=== PATIENT | female | born 1995 | race African-American/Black ===

== ENCOUNTER 2018-10-22 10:52 | Outpatient (CLI) | payer MEDICAID ==
[~2018-10-22] VITALS: Ht 162.6 cm; Wt 59.4 kg
[2018-10-22] MEDS ORDERED: PREN-93 PO (11:22)
[2018-10-22 11:24] VITALS: BP 113/68; PULSE 87; RESP 18; Ht 162.6 cm; Wt 59.4 kg
[2018-10-22] MEDS ORDERED: LACTATED RINGER'S 1,000 ML IV SCH (14:30)
[2018-10-22] MEDS ORDERED: CEFAZOLIN 2 GM/50 ML (PMX) 50 ML IVPB ONE (14:30)
--- NOTE | 2018-10-22 18:09 | TRIAGE ---
OB Triage Datetime Report Generated by CPN: 10/22/2018 18:09 Datetime: 10/22/2018 17:35 Labor Evaluation Frequency: 0 Monitor Mode: External Pattern: Normal: <= 5 Contractions in 10 Minutes Heart Rate FHR Baseline Rate: 140 Monitor Mode: External US Variability: Moderate 6-25 bpm Accelerations: 15X15 Decelerations: None Category: Category I Datetime: 10/22/2018 16:35 Labor Evaluation Frequency: 0 Pattern: Normal: <= 5 Contractions in 10 Minutes [place]: Relaxed Heart Rate FHR Baseline Rate: 140 Monitor Mode: External US Variability: Moderate 6-25 bpm Accelerations: 15X15 Decelerations: Variable Category: Category II Datetime: 10/22/2018 15:25 Comments: U/S AT BEDSIDE Datetime: 10/22/2018 15:24 Labor Evaluation Frequency: X1 Monitor Mode: External Duration (sec)2399: 60 Quality: Mild Pattern: Normal: <= 5 Contractions in 10 Minutes [place]: Relaxed Heart Rate FHR Baseline Rate: 140 Monitor Mode: External US Variability: Moderate 6-25 bpm Accelerations: 10X10 Decelerations: None Category: Category I Datetime: 10/22/2018 15:00 Labor Evaluation Frequency: 0 Monitor Mode: External Pattern: Normal: <= 5 Contractions in 10 Minutes [place]: Relaxed Heart Rate FHR Baseline Rate: 140 Monitor Mode: External US Variability: Moderate 6-25 bpm Accelerations: 15X15 Decelerations: None Category: Category I Datetime: 10/22/2018 14:00 Labor Evaluation Frequency: x1 Monitor Mode: External Duration (sec)2399: 70 Quality: Mild Pattern: Normal: <= 5 Contractions in 10 Minutes [place]: Relaxed Heart Rate FHR Baseline Rate: 135 Monitor Mode: External US Variability: Moderate 6-25 bpm Accelerations: 15X15 Decelerations: Late Category: Category II Datetime: 10/22/2018 13:00 Labor Evaluation Frequency: 0 Monitor Mode: External Pattern: Normal: <= 5 Contractions in 10 Minutes [place]: Relaxed Heart Rate FHR Baseline Rate: 140 Monitor Mode: External US Variability: Moderate 6-25 bpm Accelerations: 15X15 Decelerations: None Category: Category I Datetime: 10/22/2018 12:40 Comments: U/S TECH AT BEDSIDE Datetime: 10/22/2018 12:00 Labor Evaluation Frequency: 0 Monitor Mode: External Pattern: Normal: <= 5 Contractions in 10 Minutes [place]: Relaxed Heart Rate FHR Baseline Rate: 140 Monitor Mode: External US Variability: Moderate 6-25 bpm Accelerations: 15X15 Decelerations: Variable Category: Category II Comments: fr baseline 140 down to 110 for 50 seconds, dr mistry notified Datetime: 10/22/2018 11:26 EGA: 27.3 Datetime: 10/22/2018 11:25 Time of Arrival: 10/22/2018 10:46 Arrived By: Wheelchair Arrived From: Home Chief Complaint: VAGINAL PRESSURE, D/C Movement: Present Contractions: Denies/Absent Rupture of Membranes: Denies Vaginal Bleeding: None Vaginal Discharge: Denies Recent Sexual Intercouse: Denies Abdominal Trauma: Not Applicable Patient Complaints: Other Time Provider Notified: 10/22/2018 11:40 Provider Notified: ARADALAN Initial Plan: U/A, NST Datetime: 10/22/2018 11:10 Stage of : OB Triage Maternal Assessment Level of Consciousness: Fully Conscious DTR's/Clonus: DTRs 2+; No Clonus Headache: Denies Blurred Vision: No Respiratory Effort: Unlabored; Regular Rhythm; Equal Expansion Breath Sounds, Left: Clear and Equal Breath Sounds, Right: Clear and Equal Nausea/Vomiting: Denies RUQ Epigastric Pain: Denies Lower Extremities Edema: None Degree: None Upper Extremities Edema: None Degree: None Facial Edema: None Temperature Route: Axillary Fall Risk Assessment History of Falling: (0) No Secondary Diagnosis: (0) No Ambulatory Aid: (0) Bedrest/Nurse Assist IV Therapy: (0) No Gait: (0) Normal/Bedrest/Immobile Mental Status: (0) Oriented to Own Ability Fall Score: 0 Fall Risk Score Definition: No Risk: No action required Datetime: 10/22/2018 11:07 Pain Assessment Pain Scale: 8 Pain Presence: Constant Pain Type: Pressure Pain Location: Perineum Pain Goal: 0 Pain Relief Measures: Comfort Measures Pain Assessment Comments: PELVIC PRESSURE/PAIN
--- NOTE | 2018-10-22 18:23 | PN ---
Triage Information Date/Time October 22, 2018 Reason for visit: Weeks of Gestation 27 weeks and 3 days /Para 3 para 2 Diabetes: none Hypertention: none Additional information 23-year-old G3, P2 with IUP at 27 weeks and 3 days presents with complaint of packed vaginal pain and discharge. care with Dr. Lazar. Patient denies any leaking of amniotic fluid or vaginal bleeding or decreased movement. She denies any comp occasions during course. Objective Vital Signs Date Temp Pulse Resp B/P (MAP) Pulse Ox O2 O2 Flow FiO2 Time Delivery Rate 10/22/18 98.3 87 18 113/68 Room Air 11:24 (83) Exam General appearance: Alert and oriented x4 does not appear to be in any acute distress Abdomen: Soft, gravid, fundal height consider gestational age NST: 2 episodes of subtle deceleration down to 110's, after continuous prolonged monitoring for several hours did not happen again BPP: 8/8 Estimated weight 50th percentile Cervical examination: Negative pooling negative from test, negative FFM ELIANA: 10 Urine analysis: 3+ leukocyte and white BC Results/Medications Results 24 hrs Laboratory Tests Test 10/22/18 11:00 10/22/18 12:35 Urine Color STRAW Urine Clarity CLEAR Urine pH 7.0 Urine Specific [place] 1.010 Urine Ketones NEGATIVE Urine Nitrite NEGATIVE Urine Bilirubin NEGATIVE Urine Urobilinogen NEGATIVE Urine Leukocyte Esterase 3+ H Urine Microscopic RBC 3 Urine Microscopic WBC 12 H Urine Squamous Epithelial Cells FEW Urine Bacteria FEW A Urine Hemoglobin NEGATIVE Urine Glucose NEGATIVE Urine Total Protein NEGATIVE Membranes Rupture NEGATIVE Fibronectin NEGATIVE Imaging Results PROCEDURE: US OB. CLINICAL INDICATION: Decelerations TECHNIQUE: Transabdominal obstetrical sonographic evaluation was performed. COMPARISON: Obstetrical sonogram performed earlier on the same day. FINDINGS: There is a single living intrauterine gestation with breech presentation and posterior grade 1 placenta. There is no evidence of placenta previa or abruption. There is a moderate amount of amniotic fluid. heart rate of 152 beats per minute was detected during this examination. BPD = 6.6 cm, 26 weeks and 4 days HC = 25.7 cm, 28 weeks and 0 day AC = 23.5 cm, 27 weeks and 6 days FL = 5.3 cm, 28 weeks and 2 days Based on four parameters of biparietal diameter, head circumference, abdominal circumference and femoral head, estimated gestational age only based on this study is 27 weeks and 5 days +/- 2 weeks. Estimated date of confinement based on this examination is 01/16/2019. Estimated weight is 1151 +/- 173 grams, at 59th percentile based on this examination. Cephalic index is 71%, within normal limits. IMPRESSION: 1. Single living intrauterine gestation with breech presentation, as detailed above. PROCEDURE: OB ultrasound for biophysical profile. CLINICAL INDICATION: Biophysical profile. TECHNIQUE: Multiple sonographic images of the pelvis were obtained using transabdominal approach. COMPARISON: Obstetrical sonogram performed earlier on the same day. FINDINGS: breathing movement = 2/2 tone = 2/2 motion = 2/2 ELIANA = 14 cm Single living intrauterine gestation with heart rate of 154 beats per minute. Posterior placenta. Breech presentation. IMPRESSION: 1. Single living intrauterine gestation with breech presentation. 2. Biophysical profile = /8. 3. ELIANA = 14 cm. Disposition: Discharge Assessment/Plan IUP at 27 weeks and 3 days No evidence of labor or PPROM Normal growth ultrasound Biophysical profile reassuring NST during prolonged monitoring appropriate for gestational age 2 subtle episodes of deceleration down to 110 and resolved. Common for this gestational age Patient was advised to stay overnight for monitoring. Declined and desired to discharge home which she agreed to present tomorrow again to triage for monitoring with a strict precaution Patient was advised to return to triage again tomorrow for repeat monitoring again with a strict labor precautions kick count She verbalized understanding it is very important to report to triage tomorrow and also precaution was given if she feels any decreased movement, leaking of fluid or vaginal bleeding or any other concerns immediately return to triage. All questions were answered to patient's best satisfaction. REDD CHRISTIAN MD October 22, 2018 18:23
== END 2018-10-22 18:00 | disposition home or self-care (01) ==
LOC: L-D 10:52 → OBT 10:52
PROVIDERS: ATTEND Obstetrics & Gynecology
DX: O26.892 Other specified pregnancy related conditions, second trimester (principal); Z3A.27 27 weeks gestation of pregnancy; R10.2 Pelvic and perineal pain; N89.8 Other specified noninflammatory disorders of vagina
CPT/HCPCS: 36415; 76815; 76817; 76818; 81001; 82731; 84112; 96360; 96361; 96366; J0690; J7120; Z7500; 87086; G0463